=== PATIENT | male | born 2000 | race Caucasian/White ===

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

== ENCOUNTER 2020-01-04 16:51 | Emergency (ER) | payer OTHER, SELFPAY ==
[2020-01-04 16:54] VITALS: BP 101/43; PULSE 100; RESP 20; TEMP 36.7; O2SAT 100; BMI 21.6
--- NOTE | 2020-01-04 17:14 | CT_ITS ---
PROCEDURE: CT CHEST WO CON CLINICAL INDICATION: NV Shortness of air, cough COMPARISON: CT ABDOMEN PELVIS WO CON from 01/04/2020 TECHNIQUE: Axial images obtained with sagittal and coronal reformats. All CT scans at the facility use one or more dose reduction, viz: automated exposure control, ma/kV adjustment per patient size (including targeted exams where dose is matched to indication, i.e. head), or iterative reconstruction technique. FINDINGS: HEART AND MEDIASTINAL STRUCTURES: Hypodense right thyroid nodule measuring 1.2 cm. No mediastinal or hilar mass or adenopathy. LUNGS AND PLEURAL SPACES: Calcified granuloma left upper lobe. The remaining lungs are clear. BONY STRUCTURES: No acute bony abnormalities apparent. UPPER ABDOMEN: Unremarkable. ADDITIONAL FINDINGS: No other significant abnormalities. IMPRESSION: No acute finding. 1.2 cm right thyroid nodule Dictated by: Pino Bond MD 01/04/2020 21:27 Electronically signed by Pino Bond MD in [place] 01/04/2020 21:27
--- NOTE | 2020-01-04 17:14 | CT_ITS ---
PROCEDURE: CT ABDOMEN PELVIS WO CON CLINICAL INDICATION: NV Excessive vomiting COMPARISON: CT ABDOMEN PELVIS W CON from 06/09/2019 TECHNIQUE: Axial images obtained with sagittal and coronal reformats. All CT scans at the facility use one or more dose reduction, viz: automated exposure control, ma/kV adjustment per patient size (including targeted exams where dose is matched to indication, i.e. head), or iterative reconstruction technique. FINDINGS: LOWER THORAX: No acute finding ABDOMEN & PELVIS: The liver, spleen, pancreas, and kidneys have an unremarkable appearance. No intestinal obstruction or free air. Prominent left retroperitoneal on gonadal varices once again noted. No pelvic mass abnormal fluid collection or focal inflammatory change. No evidence of appendicitis or diverticulitis. No abnormal fluid collections evident. No acute bony anomalies. There are few scattered small sclerotic foci noted in the left sacrum in left femoral head suggesting bone islands. IMPRESSION: 1. No acute finding. 2. Chronic left retroperitoneal gonadal varices Dictated by: Pino Bond MD 01/04/2020 21:33 Electronically signed by Pino Bond MD in [place] 01/04/2020 21:33
[2020-01-04 17:23] LABS: Basophils # 0.1 K/mm3 (0-0.2); Basophils % 0.5 % (0.1-2.0); Eosinophils # 0.1 K/mm3 (0.0-0.4); Eosinophils % 0.5 % (0.1-12.0); Hematocrit 45.1 % (42.0-52.0); Lymphocytes # 0.7 K/mm3 (0.7-4.5); Lymphocytes % 6.1 % (10-50); Mean Corpuscular HGB Conc 35.5 g/dL (31.8-35.4); Mean Corpuscular Hemoglobin 30.4 pg (27.0-31.2); Mean Corpuscular Volume 85.7 fl (80-94); Monocytes # 0.4 K/mm3 (0.1-1.0); Monocytes % 3.7 % (1.7-9.3); Neutrophils # 10.1 K/mm3 (1.8-7.8); Neutrophils % 89.2 % (37.0-80.0); Platelet Count 241 K/mm3 (142-424); Red Blood Count 5.26 M/mm3 (4.60-6.20); Red Cell Distribution Width 12.9 % (11.5-17.5); White Blood Count 11.4 K/mm3 (4.5-13.0)
[2020-01-04 17:25] LABS: MANUAL DIFFERENTIAL MANUAL DIFFERENTIAL (MANUAL DIFF)
[2020-01-04 17:29] LABS: Alanine Aminotransferase 26 U/L (12-78); Albumin Level 5.1 g/dl (3.5-5.0); Albumin/Globulin Ratio 1.9 (1.1-1.8); Alkaline Phosphatase 97 U/L (38-126); Anion Gap 15.8 mEq/L (5-15); Aspartate Amino Transferase 33 U/L (17-59); Bilirubin,Total 0.7 mg/dl (0.2-1.3); Blood Urea Nitrogen 11 mg/dl (9-20); Calcium 10.2 mg/dl (8.4-10.2); Carbon Dioxide 24 mmol/L (22.0-30.0); Chloride 106 mmol/L (98-107); Creatinine Clearance Estimated 142 mL/min (50-200); Estimated Glomerular Filt Rate 145 ml/min (>60); GFR (African American) 176 ML/MIN (>60); Globulin 2.7 g/dL (1.3-3.2); Glucose 125 mg/dl (74-100); Potassium 3.8 mmoL/L (3.5-5.1); Sodium 142 mmol/L (136-145); Total Protein,Serum 7.8 g/dl (6.3-8.2)
[2020-01-04 17:30] LABS: Lactic Acid 2.5 mmol/L (0.7-2.1)
--- NOTE | 2020-01-04 17:35 | PC.NURSE ---
pt taken to CT
[2020-01-04 17:44] LABS: Eosinophils % 1 % (0-3); Lymphocytes % 2 % (10-50); Monocytes % 1 % (2-9); Neutrophils % 86 % (42-76); Platelet Estimate Normal; RBC Morphology Normal; Total Cells Counted 100
[2020-01-04 18:09] LABS: Microscopic, Urine URINE MICROSCOPIC (MICROSCOPIC)
[2020-01-04 18:11] LABS: Appearance,Urine CLEAR (Clear); Blood, Urine Negative (Negative); Color,Urine YELLOW (Yellow); Glucose,Urine (UA) Negative (Negative); Ketones,Urine 3+ (Negative); Leukocyte Esterase,Urine Negative (Negative); Nitrate,Urine Negative (Negative); Protein,Urine 2+ (Negative); Specific Gravity, Urine 1.025 (1.005-1.030)
[2020-01-04 18:12] LABS: Strep Scrn Group A (Rapid) Negative (Negative)
[2020-01-04 18:18] LABS: Amorphous Sediment,Urine 2+ /lpf; Bilirubin,Urine Negative (Negative); Squamous Epithelial Cell,Urine Occasional #/hpf (0-5); WBC,Urine Occasional #/hpf (0-3)
--- NOTE | 2020-01-04 18:28 | HMH.EDNVD ---
ED Disposition Clinical Impression: Viral gastroenteritis due to [facility] agent Disposition: Home, Self-Care Condition on Discharge: Good Instructions: DI for Diarrhea and Traveler's Diarrhea -- Adult, DI for Diarrhea and Traveler's Diarrhea -- Child, DI for Nausea -- Adult, DI for Nausea -- Child Additional Instructions: Please follow-up with primary care to set up outpatient colonoscopy and EGD. If condition worsens please return to the emergency department. Prescriptions: Promethazine HCl 50 mg PO TID 4 Days #12 tab Transmission Status: Pending to [facility] Referrals: Lexi Negrete APRN [Primary Care Provider] - - Critical Care Critical Care Time: No Attestation: On 01/04/20, the high probability of a clinically significant, sudden or life threatening deterioration of the following system(s) required my full and direct attention, intervention and personal management. The time I documented below is in addition to time spent performing reported procedures but includes the following listed in this critical care notation. Medical Decision Making - Medical Records Medical records reviewed: Yes: I reviewed the patient's medical records. - Balaji Inquiry Pt receiving controlled substance: No Vital Signs: 01/04/20 16:54 Temperature 98.1 F Temperature Source Axillary Pulse Rate [Right] 100 H Respiratory Rate 20 Blood Pressure [Right Arm] 101/43 L Blood Pressure Mean [Right Arm] 62 02 Sat by Pulse Oximetry 100 - Lab Data Lab results reviewed: Yes: I reviewed the patient's lab results. Lab Results 01/04/20 17:10: WBC 11.4, RBC 5.26, Hgb 16.0, Hct 45.1, MCV 85.7, MCH 30.4, MCHC 35.5 H, RDW 12.9, Plt Count 241, MPV 9.0, Neut % (Auto) 89.2 H, Lymph % (Auto) 6.1 L, [place] % (Auto) 3.7, Eos % (Auto) 0.5, Baso % (Auto) 0.5, Neut # (Auto) 10.1 H, Lymph # (Auto) 0.7, [place] # (Auto) 0.4, Eos # (Auto) 0.1, Baso # (Auto) 0.1, Total Counted 100, Neutrophils % (Manual) 86 H, Band Neutrophils % 10.0 H, Lymphocytes % (Manual) 2 L, Monocytes % (Manual) 1 L, Eosinophils % (Manual) 1, Platelet Estimate Normal, RBC Morphology Normal 01/04/20 17:10: Sodium 142, Potassium 3.8, Chloride 106, Carbon Dioxide 24, Anion Gap 15.8 H, BUN 11, Creatinine 0.70, Estimated Creat Clear 142, Estimated GFR 145, Est GFR ( Amer) 176, Glucose 125 H, Calcium 10.2, Total Bilirubin 0.7, AST 33, ALT 26, Alkaline Phosphatase 97, Total Protein 7.8, Albumin 5.1 H, Globulin 2.7, Albumin/Globulin Ratio 1.9 H 01/04/20 17:10: Lactate 2.5 H 01/04/20 17:19: Influenza Type A Ag Negative, Influenza Type B Ag Negative 01/04/20 17:19: Group A Strep Rapid Negative 01/04/20 18:04: Urine Color Yellow, Urine Appearance Clear, Urine pH 8.0, Ur Specific [place] 1.025, Urine Protein 2+, Urine Glucose (UA) Negative, Urine Ketones 3+, Urine Blood Negative, Urine Nitrate Negative, Urine Bilirubin Negative, Urine Urobilinogen 1.0, Ur Leukocyte Esterase Negative, Urine RBC None, Urine WBC Occasional, Ur Squamous Epith Cells Occasional, Amorphous Sediment 2+, Urine Bacteria None Result diagrams: 01/04/20 17:10 01/04/20 17:10 Orders (Tests/Meds): ED MEDICATIONS Generic Name Dose Route Start Last Admin Trade Name Freq PRN Reason Stop Dose Admin Sodium Chloride 1,000 mls @ 999 mls/hr 01/04/20 17:15 01/04/20 17:34 Sod Chlor 0.9% 1000ml Bag IV 01/04/20 18:15 999 mls/hr .Q1H1M EDWARD Administration Discontinued Medications Generic Name Dose Route Start Last Admin Trade Name Freq PRN Reason Stop Dose Admin Ondansetron HCl 4 mg 01/04/20 17:09 01/04/20 17:33 Zofran 4mg/2ml Vial IV 01/04/20 17:10 4 mg ONCE ONE Administration Promethazine HCl 25 mg 01/04/20 17:09 01/04/20 17:34 Phenergan 25mg/Ml 1ml Vial IV 01/04/20 17:10 25 mg ONCE ONE Administration Sodium Chloride 25 ml 01/04/20 17:09 01/04/20 17:34 Sod Chlor 0.9% 25ml Bag IV 01/04/20 17:10 25 ml ONCE ONE Administration ORDERS Catego
[2020-01-04 19:26] VITALS: BP 114/76; PULSE 86; RESP 16; TEMP 36.7; O2SAT 99
== END 2020-01-04 19:30 | disposition home or self-care (01) ==
PROVIDERS: Emergency Provider Family Medicine; PCP Nurse Practitioner Family
DX: A08.11 Acute gastroenteropathy due to Norwalk agent (principal)
CPT/HCPCS: 71250; 74176; 80053; 81001; 83605; 85007; 85025; 87040; 87275; 87276; 87430; 96365; 96366; 96375; 96376; 99284; J2405

== ENCOUNTER → 2020-01-31 10:20 | Outpatient (CLI) | payer OTHER, SELFPAY | PROVIDERS: PCP Nurse Practitioner Family; Visit Provider Nurse Practitioner Family | DX: R10.11 Right upper quadrant pain (principal); R11.10 Vomiting, unspecified ==

== ENCOUNTER → 2020-02-05 09:19 | Outpatient (CLI) | payer OTHER, SELFPAY ==
--- NOTE | 2020-02-05 09:22 | US_ITS ---
PROCEDURE: US ABDOMEN LIMITED CLINICAL INDICATION: VOMITING,WEIGHT LOSS,RUQ TENDERNESS COMPARISON: No exams were available for comparison FINDINGS: PANCREAS: Unremarkable. No obvious mass or abnormal fluid collection. No ductal dilatation LIVER: No focal liver lesions demonstrated. Homogeneous echogenicity. No intrahepatic biliary ductal dilatation evident. There is appropriate direction of blood flow within a non dilated portal vein RIGHT KIDNEY: Unremarkable. Normal size and echogenicity. No hydronephrosis GALLBLADDER: No gallstones, gallbladder wall thickening, pericholecystic fluid, or biliary dilatation. IMPRESSION: Unremarkable limited abdominal ultrasound as detailed above disc Dictated by: Pino Bond MD 02/05/2020 12:12 Electronically signed by Pino Bond MD in [place] 02/05/2020 12:12
--- NOTE | 2020-02-05 09:24 | NM_ITS ---
PROCEDURE: NM HEPATOBILIARY W PHARM CLINICAL INDICATION: WEIGHT LOSS,VOMITING Abdominal pain with nausea and vomiting COMPARISON: US ABDOMEN LIMITED from 02/05/2020 TECHNIQUE: DOSE: 8.26 mCi technetium Choletec. 1 mcg CCK. No pain reported with CCK infusion FINDINGS: Homogeneous activity is present within the hepatic parenchyma. Activity is present in the gallbladder by 10 minutes. Activity is present in the small bowel by 15 minutes. The gallbladder ejection fraction is calculated to be 51 percent. CCK-The patient did not report pain or other symptoms during CCK infusion. IMPRESSION: Unremarkable hepatic biliary scan with normal gallbladder ejection fraction Dictated by: Pino Bond MD 02/05/2020 12:10 Electronically signed by Pino Bond MD in [place] 02/05/2020 12:10
--- NOTE | 2020-02-05 10:06 | HMH.ITSHM ---
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 []STOMACH MED
== END ==
PROVIDERS: PCP Nurse Practitioner Family; Visit Provider Internal Medicine Adolescent Medicine
DX: R11.10 Vomiting, unspecified (principal); R63.4 Abnormal weight loss; R10.811 Right upper quadrant abdominal tenderness
CPT/HCPCS: 76705; 78227; A9537; J2805

== ENCOUNTER 2020-09-15 16:34 | Emergency (ER) | payer OTHER, SELFPAY ==
[2020-09-15 16:35] VITALS: BP 119/71; PULSE 88; RESP 16; TEMP 36.7; O2SAT 98; BMI 22.0
[2020-09-15 17:33] VITALS: BMI 17.9
[2020-09-15 17:46] LABS: Chloride 105 mmol/L (98-107)
[2020-09-15 17:47] LABS: Basophils % 0.2 % (0.1-2.0); Eosinophils % 0.1 % (0.1-12.0); Hematocrit 49.7 % (42.0-52.0); Hemoglobin 17.2 g/dL (14.1-18.0); Lymphocytes # 0.8 K/mm3 (0.7-4.5); Lymphocytes % 5.9 % (10-50); Mean Corpuscular HGB Conc 34.7 g/dL (31.8-35.4); Mean Corpuscular Hemoglobin 30.5 pg (27.0-31.2); Mean Corpuscular Volume 87.9 fl (80-94); Mean Platelet Volume 8.6 fl (7.4-10.4); Monocytes # 0.4 K/mm3 (0.1-1.0); Monocytes % 2.9 % (1.7-9.3); Neutrophils % 90.9 % (37.0-80.0); Platelet Count 235 K/mm3 (142-424); Potassium 3.7 mmoL/L (3.5-5.1); Red Blood Count 5.65 M/mm3 (4.60-6.20); Red Cell Distribution Width 13.1 % (11.5-17.5); Sodium 141 mmol/L (136-145); White Blood Count 13.2 K/mm3 (4.5-13.0)
[2020-09-15 17:49] LABS: Alanine Aminotransferase 25 U/L (12-78); Aspartate Amino Transferase 34 U/L (17-59); Blood Urea Nitrogen 11 mg/dl (9-20); Creatinine Clearance Estimated 91 mL/min (50-200); Estimated Glomerular Filt Rate 108 ml/min (>60); GFR (African American) 130 ML/MIN (>60); Lipase 116 U/L (23-300)
[2020-09-15 17:50] VITALS: BP 96/53; PULSE 64; O2SAT 100
[2020-09-15 17:50] LABS: Albumin Level 5.3 g/dl (3.5-5.0); Albumin/Globulin Ratio 1.8 (1.1-1.8); Alkaline Phosphatase 107 U/L (38-126); Anion Gap 15.7 mEq/L (5-15); Bilirubin,Total 0.9 mg/dl (0.2-1.3); Calcium 10.5 mg/dl (8.4-10.2); Carbon Dioxide 24 mmol/L (22.0-30.0); Glucose 124 mg/dl (74-100); Total Protein,Serum 8.3 g/dl (6.3-8.2)
[2020-09-15 17:57] LABS: MANUAL DIFFERENTIAL MANUAL DIFFERENTIAL (MANUAL DIFF)
[2020-09-15 18:00] VITALS: BP 96/52; PULSE 79; O2SAT 100
[2020-09-15 18:43] LABS: Lymphocytes % 4 % (10-50); Monocytes % 1 % (2-9); Neutrophils % 95 % (42-76); Total Cells Counted 100
[2020-09-15 18:44] LABS: Platelet Estimate Normal; RBC Morphology Normal
--- NOTE | 2020-09-15 18:44 | HMH.EDABDPAI ---
ED Disposition Clinical Impression: Vomiting Qualifiers: Nausea presence: with nausea Abdominal pain Qualifiers: Abdominal location: generalized Qualified Code(s): R10.84 - Generalized abdominal pain Disposition: Home, Self-Care Condition on Discharge: Good Instructions: DI for Acute Abdominal Pain Additional Instructions: Return to the ED for any new or worsening symptoms including persistent vomiting or severe abdominal pain. Prescriptions: Ondansetron [Zofran 4mg ODT] 4 mg PO TIDP PRN 3 Days #3 tab PRN Reason: Nausea Transmission Status: Pending to [facility] Referrals: Lexi Negrete APRN [Primary Care Provider] - - Critical Care Critical Care Time: No Attestation: On 09/15/20, the high probability of a clinically significant, sudden or life threatening deterioration of the following system(s) required my full and direct attention, intervention and personal management. The time I documented below is in addition to time spent performing reported procedures but includes the following listed in this critical care notation. Medical Decision Making - Medical Records Medical records reviewed: Yes: I reviewed the patient's medical records. MR Comment: Multiple visits for similar symptoms. - Balaji Inquiry Pt receiving controlled substance: No Vital Signs: 09/15/20 17:50 09/15/20 18:00 Pulse Rate [Right Radial] 64 79 Blood Pressure [Left Arm] 96/53 L 96/52 L Blood Pressure Mean [Left Arm] 67 66 Blood Pressure Source [Left Arm] Automatic Cuff Automatic Cuff Blood Pressure Position [Left Arm] Sitting Sitting 02 Sat by Pulse Oximetry 100 100 Oxygen Delivery Method Room Air Room Air - Lab Data Lab Results 09/15/20 17:25: WBC 13.2 H, RBC 5.65, Hgb 17.2, Hct 49.7, MCV 87.9, MCH 30.5, MCHC 34.7, RDW 13.1, Plt Count 235, MPV 8.6, Neut % (Auto) 90.9 H, Lymph % (Auto) 5.9 L, [place] % (Auto) 2.9, Eos % (Auto) 0.1, Baso % (Auto) 0.2, Neut # (Auto) 12.0 H, Lymph # (Auto) 0.8, Town[place] # (Auto) 0.4, Eos # (Auto) 0.0, Baso # (Auto) 0.0, Total Counted 100, Neutrophils % (Manual) 95 H, Lymphocytes % (Manual) 4 L, Monocytes % (Manual) 1 L, Platelet Estimate Normal, RBC Morphology Normal 09/15/20 17:25: Sodium 141, Potassium 3.7, Chloride 105, Carbon Dioxide 24, Anion Gap 15.7 H, BUN 11, Creatinine 0.90, Estimated Creat Clear 91, Estimated GFR 108, Est GFR ( Amer) 130, Glucose 124 H, Calcium 10.5 H, Total Bilirubin 0.9, AST 34, ALT 25, Alkaline Phosphatase 107, Total Protein 8.3 H, Albumin 5.3 H, Globulin 3.0, Albumin/Globulin Ratio 1.8 09/15/20 17:25: Lipase 116 Result diagrams: 09/15/20 17:25 09/15/20 17:25 Orders (Tests/Meds): ED MEDICATIONS Generic Name Dose Route Start Last Admin Trade Name Freq PRN Reason Stop Dose Admin Sodium Chloride 1,000 mls @ 999 mls/hr 09/15/20 17:45 09/15/20 17:37 Sod Chlor 0.9% 1000ml Bag IV 09/15/20 18:45 999 mls/hr .Q1H1M EDWARD Administration Discontinued Medications Generic Name Dose Route Start Last Admin Trade Name Freq PRN Reason Stop Dose Admin Ondansetron HCl 4 mg 09/15/20 17:36 09/15/20 17:37 Ondansetron 4mg/2ml Vial IV 09/15/20 17:37 4 mg ONCE ONE Administration Medical Decision Narrative: 20-year-old male who presents with acute nausea and vomiting and epigastric abdominal pain since this morning. Patient has a history of similar events that improved with fluids and Zofran. He has a benign abdominal exam and is well-appearing and nontoxic on initial examination has hemodynamically stable vital signs. Patient will be given 4 mg of Zofran IV and IV fluid bolus 1 L. Following interventions patient feels significantly better is tolerating oral intake and will be discharged home in good condition with appropriate return precautions and a prescription for Zofran. Abdominal Pain HPI - General Chief Complaint: Abdominal Pain Stated Complaint: Vomiting Time Seen by Provider: 09/15/20 17:15 Source of [employer]
[2020-09-15 19:18] VITALS: BP 111/76; PULSE 81; RESP 16; TEMP 36.7; O2SAT 98
== END 2020-09-15 19:25 | disposition home or self-care (01) ==
PROVIDERS: Emergency Provider Student in an Organized Health Care Education/Training Program; PCP Nurse Practitioner Family
DX: R10.84 Generalized abdominal pain (principal); R11.10 Vomiting, unspecified
CPT/HCPCS: 80053; 83690; 85007; 85025; 96365; 96375; 99282; J2405

== ENCOUNTER 2021-04-07 08:47 | Emergency (ER) | payer OTHER, SELFPAY ==
[2021-04-07 08:48] VITALS: BP 123/77; PULSE 94; RESP 18; TEMP 36.8; O2SAT 100; BMI 18.5
--- NOTE | 2021-04-07 08:56 | HMH.EDGENADL ---
ED Disposition Clinical Impression: Nausea and vomiting Qualifiers: Vomiting type: unspecified Vomiting Intractability: non-intractable Qualified Code(s): R11.2 - Nausea with vomiting, unspecified Disposition: Home, Self-Care Condition on Discharge: Fair Instructions: Nausea and Vomiting-Adult Additional Instructions: You have been evaluated for nausea and vomiting. Please take Zofran and Phenergan as needed. Eat a bland diet. Avoid foods that cause abdominal pain or nausea. Follow-up with your primary care doctor. Return to the emergency department at once for any new or worsening symptoms. Referrals: Analisa Hancock APRN [Primary Care Provider] - Time of Disposition: 10:43 - Critical Care Critical Care Time: No Attestation: On , the high probability of a clinically significant, sudden or life threatening deterioration of the following system(s) required my full and direct attention, intervention and personal management. The time I documented below is in addition to time spent performing reported procedures but includes the following listed in this critical care notation. Medical Decision Making - Medical Records Medical records reviewed: Yes: I reviewed the patient's medical records. - Balaji Inquiry Pt receiving controlled substance: No Vital Signs: 04/07/21 08:48 Temperature 98.2 F Temperature Source Axillary Pulse Rate [Right Radial] 94 H Respiratory Rate 18 Blood Pressure [Right Arm] 123/77 Blood Pressure Mean [Right Arm] 92 Blood Pressure Source [Right Arm] Automatic Cuff Blood Pressure Position [Right Arm] Sitting 02 Sat by Pulse Oximetry 100 Oxygen Delivery Method Room Air - Lab Data Lab Results 04/07/21 09:05: WBC 6.6, RBC 5.33, Hgb 15.9, Hct 44.1, MCV 82.9, MCH 29.8, MCHC 36.0 H, RDW 13.2, Plt Count 212, MPV 9.2, Neut % (Auto) 85.7 H, Lymph % (Auto) 7.1 L, [place]oll[place] % (Auto) 6.2, Eos % (Auto) 0.4, Baso % (Auto) 0.6, Neut # (Auto) 5.7, Lymph # (Auto) 0.5 L, [place]oll[place] # (Auto) 0.4, Eos # (Auto) 0.0, Baso # (Auto) 0.0, Total Counted 100, Neutrophils % (Manual) 89 H, Lymphocytes % (Manual) 7 L, Monocytes % (Manual) 4, Nucleated RBCs 2, Platelet Estimate Normal, Hypochromasia 1+ 04/07/21 09:05: Sodium 142, Potassium 3.7, Chloride 107, Carbon Dioxide 21 L, Anion Gap 17.7 H, BUN 11, Creatinine 0.80, Estimated Creat Clear 101, Estimated GFR 122, Est GFR ( Amer) 148, Glucose 145 H, Calcium 9.7, Total Bilirubin 0.9, AST 34, ALT 25, Alkaline Phosphatase 95, Total Protein 7.8, Albumin 5.1 H, Globulin 2.7, Albumin/Globulin Ratio 1.9 H 04/07/21 09:05: Lipase 105 Result diagrams: 04/07/21 09:05 04/07/21 09:05 Orders (Tests/Meds): ED MEDICATIONS Discontinued Medications Generic Name Dose Route Start Last Admin Trade Name Freq PRN Reason Stop Dose Admin Sodium Chloride 1,000 mls @ 999 mls/hr 04/07/21 09:00 04/07/21 09:10 Sod Chlor 0.9% 1000ml Bag IV 04/07/21 10:00 999 mls/hr .Q1H1M EDWARD Administration Ondansetron HCl 4 mg 04/07/21 08:55 04/07/21 09:10 Ondansetron 4mg/2ml Vial IV 04/07/21 08:56 4 mg ONCE ONE Administration Medical Decision Narrative: In summary this is a 21-year-old male presenting to the emergency department with nausea and vomiting. Patient clinically stable on arrival. Vital signs within normal limits. He is small for his age, thin. Concern for dehydration, electrolyte derangement, viral gastroenteritis, vaccine reaction. Doubt more serious pathology like surgical abdominal pain. Will obtain CBC, CMP, lipase. Patient given IV fluids and 4 mg IV Zofran. Initial laboratory results show anion gap of 17. Otherwise unremarkable. After medication and fluids patient was feeling much better. No vomiting while in the emergency department. He was able to tolerate crackers and water. [place] comfortable with plan for discharge home. Recommended close follow-up with PCP. General Adult HPI - General Stated complaint: vomiting Time Seen by Provider: 04/07
[2021-04-07 09:19] LABS: Basophils % 0.6 % (0.1-2.0); Eosinophils % 0.4 % (0.1-12.0); Hematocrit 44.1 % (42.0-52.0); Hemoglobin 15.9 g/dL (14.1-18.0); Lymphocytes # 0.5 K/mm3 (0.7-4.5); Lymphocytes % 7.1 % (10-50); Mean Corpuscular Hemoglobin 29.8 pg (27.0-31.2); Mean Corpuscular Volume 82.9 fl (80-94); Mean Platelet Volume 9.2 fl (7.4-10.4); Monocytes # 0.4 K/mm3 (0.1-1.0); Monocytes % 6.2 % (1.7-9.3); Neutrophils # 5.7 K/mm3 (1.8-7.8); Neutrophils % 85.7 % (37.0-80.0); Platelet Count 212 K/mm3 (142-424); Red Blood Count 5.33 M/mm3 (4.60-6.20); Red Cell Distribution Width 13.2 % (11.5-17.5); White Blood Count 6.6 K/mm3 (4.8-10.8)
[2021-04-07 09:27] LABS: Lipase 105 U/L (23-300)
[2021-04-07 09:28] LABS: Alanine Aminotransferase 25 U/L (12-78); Albumin Level 5.1 g/dl (3.5-5.0); Albumin/Globulin Ratio 1.9 (1.1-1.8); Alkaline Phosphatase 95 U/L (38-126); Anion Gap 17.7 mEq/L (5-15); Aspartate Amino Transferase 34 U/L (17-59); Bilirubin,Total 0.9 mg/dl (0.2-1.3); Blood Urea Nitrogen 11 mg/dl (9-20); Calcium 9.7 mg/dl (8.4-10.2); Carbon Dioxide 21 mmol/L (22.0-30.0); Chloride 107 mmol/L (98-107); Creatinine Clearance Estimated 101 mL/min (50-200); Estimated Glomerular Filt Rate 122 ml/min (>60); GFR (African American) 148 ML/MIN (>60); Globulin 2.7 g/dL (1.3-3.2); Glucose 145 mg/dl (74-100); Potassium 3.7 mmoL/L (3.5-5.1); Sodium 142 mmol/L (136-145); Total Protein,Serum 7.8 g/dl (6.3-8.2)
[2021-04-07 09:30] LABS: MANUAL DIFFERENTIAL MANUAL DIFFERENTIAL (MANUAL DIFF)
--- NOTE | 2021-04-07 09:45 | PC.NURSE ---
Resident sleeping on stretcher at this time. Spoke with mother and she stated that Zofran has stopped the vomiting. Mother advises that it usually helps every time.
[2021-04-07 10:05] LABS: Hypochromasia 1+; Platelet Estimate Normal
[2021-04-07 10:15] LABS: Lymphocytes % 7 % (10-50); Monocytes % 4 % (2-9); Neutrophils % 89 % (42-76); Nucleated Red Blood Cells 2; Total Cells Counted 100
[2021-04-07 11:05] VITALS: BP 111/67; PULSE 91; RESP 16; TEMP 36.9; O2SAT 99
== END 2021-04-07 11:05 | disposition home or self-care (01) ==
PROVIDERS: Emergency Provider Emergency Medicine; PCP Nurse Practitioner Family
DX: R11.2 Nausea with vomiting, unspecified (principal); R73.9 Hyperglycemia, unspecified
CPT/HCPCS: 80053; 83690; 85007; 85025; 96374; 96375; 99282; J2405

== ENCOUNTER 2021-09-19 08:26 | Emergency (ER) | payer OTHER, SELFPAY ==
[2021-09-19 08:33] VITALS: BP 110/68; PULSE 91; RESP 16; TEMP 36.6; O2SAT 96; BMI 18.4
[2021-09-19 08:45] VITALS: BP 104/70; PULSE 90; O2SAT 96
[2021-09-19 09:00] VITALS: BP 101/59; PULSE 86; O2SAT 99
--- NOTE | 2021-09-19 09:08 | HMH.EDGENADL ---
ED Disposition Clinical Impression: Nausea and vomiting Qualifiers: Vomiting type: unspecified Qualified Code(s): R11.2 - Nausea with vomiting, unspecified Disposition: Home, Self-Care Condition on Discharge: Good Instructions: DI for Nausea -- Adult Additional Instructions: You have been evaluated for nausea and vomiting. Please follow bland diet for the next few days. Stay hydrated. Follow-up with your primary care doctor. Return to the emergency department for any new or worsening symptoms. Prescriptions: Sucralfate [Carafate 1gm/10mL Susp] 10 ml PO ACHS PRN #150 ml PRN Reason: Acid Reflux Transmission Status: Pending to [facility] Promethazine HCl [Phenergan 12.5mg tablet] 12.5 mg PO Q6H PRN #6 tab PRN Reason: Nausea And Vomiting Transmission Status: Pending to [facility] Referrals: Analisa Hancock APRN [Primary Care Provider] - Time of Disposition: 10:33 - Critical Care Critical Care Time: No Attestation: On 09/19/21, the high probability of a clinically significant, sudden or life threatening deterioration of the following system(s) required my full and direct attention, intervention and personal management. The time I documented below is in addition to time spent performing reported procedures but includes the following listed in this critical care notation. Medical Decision Making - Medical Records Medical records reviewed: Yes: I reviewed the patient's medical records. - Balaji Inquiry Pt receiving controlled substance: No Vital Signs: 09/19/21 08:33 09/19/21 08:45 09/19/21 09:00 Temperature 98 F Temperature Source Oral Pulse Rate 90 86 Pulse Rate [Left Radial] 91 H Respiratory Rate 16 Blood Pressure 104/70 L 101/59 L Blood Pressure [Right Arm] 110/68 Blood Pressure Mean [Right Arm] 82 02 Sat by Pulse Oximetry 96 96 99 Oxygen Delivery Method Room Air - Lab Data Lab Results 09/19/21 08:55: WBC 10.9 H, RBC 5.86, Hgb 17.1, Hct 51.6, MCV 88.0, MCH 29.1, MCHC 33.1, RDW 13.3, Plt Count 260, MPV 9.0, Neut % (Auto) 89.3 H, Lymph % (Auto) 6.2 L, [place] % (Auto) 3.9, Eos % (Auto) 0.1, Baso % (Auto) 0.4, Neut # (Auto) 9.8 H, Lymph # (Auto) 0.7, [place] # (Auto) 0.4, Eos # (Auto) 0.0, Baso # (Auto) 0.0, Total Counted 100, Neutrophils % (Manual) 90 H, Lymphocytes % (Manual) 6 L, Monocytes % (Manual) 4, Platelet Estimate Normal 09/19/21 08:55: Sodium 142, Potassium 3.9, Chloride 103, Carbon Dioxide 27, Anion Gap 15.9 H, BUN 15, Creatinine 0.90, Estimated Creat Clear 92, Estimated GFR 107, Est GFR ( Amer) 129, Glucose 121 H, Calcium 10.2, Total Bilirubin 0.6, AST 32, ALT 23, Alkaline Phosphatase 82, Total Protein 7.8, Albumin 5.0, Globulin 2.8, Albumin/Globulin Ratio 1.8, Lipase 129 Result diagrams: 09/19/21 08:55 09/19/21 08:55 Orders (Tests/Meds): ED MEDICATIONS Discontinued Medications Generic Name Dose Route Start Last Admin Trade Name Freq PRN Reason Stop Dose Admin Sodium Chloride 1,000 mls @ 999 mls/hr 09/19/21 08:45 09/19/21 08:45 Sod Chlor 0.9% 1000ml Bag IV 09/19/21 09:45 999 mls/hr .Q1H1M EDWARD Administration Promethazine HCl 12.5 mg 09/19/21 08:37 09/19/21 08:44 Promethazine Hcl 25mg/Ml 1ml Vial IV 09/19/21 08:38 12.5 mg ONCE ONE Administration Sodium Chloride 25 ml 09/19/21 08:37 09/19/21 08:44 Sodium Chloride 0.9% 25ml Bag IV 09/19/21 08:38 25 ml ONCE ONE Administration Medical Decision Narrative: In summary this is a 21-year-old male with history of vomiting syndrome presenting to the emergency department nausea and vomiting. Patient clinically stable on arrival. Vital signs within normal limits. Concern for dehydration, pancreatitis, gastritis. Will obtain CBC, CMP, lipase. Patient given IV fluids and 12.5 mg IV Phenergan. Laboratory results show slightly elevated white blood cell count at 10,000. There is lymphopenia. Other laboratory results are reassuring. No elevatio
[2021-09-19 09:23] LABS: Basophils % 0.4 % (0.1-2.0); Eosinophils % 0.1 % (0.1-12.0); Hematocrit 51.6 % (42.0-52.0); Hemoglobin 17.1 g/dL (14.1-18.0); Lymphocytes # 0.7 K/mm3 (0.7-4.5); Lymphocytes % 6.2 % (10-50); Mean Corpuscular HGB Conc 33.1 g/dL (31.8-35.4); Mean Corpuscular Hemoglobin 29.1 pg (27.0-31.2); Monocytes # 0.4 K/mm3 (0.1-1.0); Monocytes % 3.9 % (1.7-9.3); Neutrophils # 9.8 K/mm3 (1.8-7.8); Neutrophils % 89.3 % (37.0-80.0); Platelet Count 260 K/mm3 (142-424); Red Blood Count 5.86 M/mm3 (4.60-6.20); Red Cell Distribution Width 13.3 % (11.5-17.5); White Blood Count 10.9 K/mm3 (4.8-10.8)
[2021-09-19 09:29] LABS: MANUAL DIFFERENTIAL MANUAL DIFFERENTIAL (MANUAL DIFF)
[2021-09-19 09:33] LABS: Alanine Aminotransferase 23 U/L (12-78); Albumin/Globulin Ratio 1.8 (1.1-1.8); Alkaline Phosphatase 82 U/L (38-126); Anion Gap 15.9 mEq/L (5-15); Aspartate Amino Transferase 32 U/L (17-59); Bilirubin,Total 0.6 mg/dl (0.2-1.3); Blood Urea Nitrogen 15 mg/dl (9-20); Calcium 10.2 mg/dl (8.4-10.2); Carbon Dioxide 27 mmol/L (22.0-30.0); Chloride 103 mmol/L (98-107); Creatinine Clearance Estimated 92 mL/min (50-200); Estimated Glomerular Filt Rate 107 ml/min (>60); GFR (African American) 129 ML/MIN (>60); Globulin 2.8 g/dL (1.3-3.2); Glucose 121 mg/dl (74-100); Lipase 129 U/L (23-300); Potassium 3.9 mmoL/L (3.5-5.1); Sodium 142 mmol/L (136-145); Total Protein,Serum 7.8 g/dl (6.3-8.2)
[2021-09-19 10:18] LABS: Lymphocytes % 6 % (10-50); Monocytes % 4 % (2-9); Neutrophils % 90 % (42-76); Total Cells Counted 100
[2021-09-19 10:19] LABS: Platelet Estimate Normal
[2021-09-19 10:47] VITALS: BP 120/87; PULSE 84; RESP 16; TEMP 36.6; O2SAT 99
[2021-09-19 10:57] LABS: Coronavirus 19, PCR Not Detected (NotDetected); Influenza A, PCR Not Detected (NotDetected); Influenza B, PCR Not Detected (NotDetected)
== END 2021-09-19 10:47 | disposition home or self-care (01) ==
PROVIDERS: Emergency Provider Emergency Medicine; PCP Nurse Practitioner Family
DX: R11.2 Nausea with vomiting, unspecified (principal)
CPT/HCPCS: 80053; 83690; 85007; 85025; 96365; 96375; 99282; C9803; U0003; U0005

== ENCOUNTER → 2021-09-22 21:12 | Outpatient (CLI) | payer OTHER, SELFPAY | PROVIDERS: Visit Provider Nurse Practitioner Family | DX: Z20.822 Contact with and (suspected) exposure to COVID-19 (principal); J02.9 Acute pharyngitis, unspecified | CPT/HCPCS: C9803; U0003; U0005 ==

== ENCOUNTER 2022-07-26 07:33 | Emergency (ER) | payer OTHER, SELFPAY ==
[2022-07-26 07:35] VITALS: BP 100/55; PULSE 96; RESP 18; TEMP 36.7; O2SAT 100; BMI 19.1
[2022-07-26 07:53] VITALS: BMI 25.0
[2022-07-26 07:55] LABS: Basophils # 0.1 K/mm3 (0-0.2); Basophils % 0.5 % (0.1-2.0); Eosinophils # 0.1 K/mm3 (0.0-0.4); Eosinophils % 0.3 % (0.1-12.0); Hematocrit 49.3 % (42.0-52.0); Hemoglobin 16.9 g/dL (14.1-18.0); Lymphocytes # 0.9 K/mm3 (0.7-4.5); Lymphocytes % 5.9 % (10-50); Mean Corpuscular HGB Conc 34.2 g/dL (31.8-35.4); Mean Corpuscular Hemoglobin 29.5 pg (27.0-31.2); Mean Corpuscular Volume 86.2 fl (80-94); Monocytes # 0.5 K/mm3 (0.1-1.0); Monocytes % 3.6 % (1.7-9.3); Neutrophils # 13.4 K/mm3 (1.8-7.8); Neutrophils % 89.6 % (37.0-80.0); Platelet Count 274 K/mm3 (142-424); Red Blood Count 5.72 M/mm3 (4.60-6.20); White Blood Count 14.9 K/mm3 (4.8-10.8)
[2022-07-26 08:00] LABS: MANUAL DIFFERENTIAL MANUAL DIFFERENTIAL (MANUAL DIFF)
[2022-07-26 08:10] LABS: Lymphocytes % 7 % (10-50); Monocytes % 4 % (2-9); Neutrophils % 89 % (42-76); Platelet Estimate Normal; RBC Morphology Normal; Total Cells Counted 100
--- NOTE | 2022-07-26 08:10 | HMH.EDGENADL ---
Discharge Plan Disposition Patient Disposition: Home, Self-Care Condition: Good Prescriptions Prescriptions: New scopolamine base 1 mg over 3 days patch 3 day 1 patch transdermal Q72H PRN (Reason: nausea and vomiting) Qty: 10 0RF promethazine 25 mg suppository 25 mg DC Q6H PRN (Reason: sedation) Qty: 12 0RF No Action omeprazole 20 mg capsule,delayed release(DR/EC) 20 mg PO Clinical Impressions Clinical Impression: Gastroenteritis, Dehydration Instructions Patient Instructions: DI for Diarrhea and Traveler's Diarrhea -- Adult, DI for Nausea -- Adult, Promethazine, Scopolamine Transdermal Patch Print Language Print Language: Uzbek Discharge ED Provider: Filipe Castrejon General Adult HPI General Chief complaint: Nausea/Vomiting/Diarrhea Stated complaint: Vomiting Time Seen by Provider: 07/26/22 07:43 Mode of Arrival: Ambulatory Source of Information: Parent(s) Limitations: No Limitations Description of Symptoms (Recalled from ER Triage Doc. by RN): MOTHER REPORS PT BEGAN VOMITING AT 2200 LAST NIGHT. History of Present Illness HPI narrative: 22-year-old male, history of recurrent abdominal pain, nausea and vomiting, presents with the same. Mom states approximately 20 episodes of vomiting since last night. Denies any diarrhea, constipation, abdominal pain today, fevers, chills or any other symptoms. He had received approximately 1 L of IV fluids and was given 4 mg of Zofran prior to my evaluation. Is still reporting some nausea and vomiting, given additional 12.5 mg of IV Phenergan. Denies prior abdominal surgeries, denies any dysuria. Related Data Home Medications Medication Instructions Recorded Confirmed omeprazole 20 mg capsule,delayed 20 mg PO 09/22/21 09/22/21 release Previous Rx's Medication Instructions Recorded promethazine 25 mg rectal 25 mg DC Q6H PRN sedation #12 ea 07/26/22 suppository scopolamine base 1 mg over 3 days 1 patch transdermal Q72H PRN 07/26/22 transdermal patch nausea and vomiting #10 ea Allergies Allergy/AdvReac Type Severity Reaction Status Date / Time No Known Allergies Allergy Verified 09/22/21 11:36 [facility] Medical History No significant past medical history Family History Other No significant family history Social History Smoking Status: Never smoker alcohol intake: never current occupational status: other Travel in the last 8 weeks: None household members: family housing: house ROS Obtained: Yes Systems reviewed as appropriate & no additional complaints except as documented Constitutional Constitutional: Reports system reviewed and no additional complaints, except as documented Eyes Eyes: Reports system reviewed and no additional complaints, except as documented ENT Ears, Nose, Mouth, and Throat: Reports system reviewed and no additional complaints, except as documented Cardiovascular Cardiovascular: Reports system reviewed and no additional complaints, except as documented Respiratory Respiratory: Reports system reviewed and no additional complaints, except as documented Gastrointestinal Gastrointestingal: Reports system reviewed and no additional complaints, except as documented Genitourinary Male Genitourinary: Reports system reviewed and no additional complaints, except as documented Musculoskeletal Musculoskeletal: Reports system reviewed and no additional complaints, except as documented Integumentary/Breasts Skin/Breast: Reports system reviewed and no additional complaints, except as documented Neurologic Neurologic: Reports system reviewed and no additional complaints, except as documented Endocrine Endocrine: Reports system reviewed and no additional complaints, except as documented Hematologic/Lymphatic Henatologic/Lymphatic: Reports system re
[2022-07-26 08:11] LABS: Alanine Aminotransferase 25 U/L (12-78); Albumin Level 5.2 g/dl (3.5-5.0); Albumin/Globulin Ratio 1.9 (1.1-1.8); Alkaline Phosphatase 116 U/L (38-126); Anion Gap 24.4 mEq/L (5-15); Aspartate Amino Transferase 33 U/L (17-59); Bilirubin,Total 1.1 mg/dl (0.2-1.3); Blood Urea Nitrogen 14 mg/dl (9-20); Calcium 10.7 mg/dl (8.4-10.2); Carbon Dioxide 22 mmol/L (22.0-30.0); Chloride 103 mmol/L (98-107); Creatinine Clearance Estimated 139 mL/min (50-200); Estimated Glomerular Filt Rate 121 ml/min (>60); GFR (African American) 146 ML/MIN (>60); Globulin 2.8 g/dL (1.3-3.2); Glucose 139 mg/dl (74-100); Lipase 120 U/L (23-300); Potassium 4.4 mmoL/L (3.5-5.1); Sodium 145 mmol/L (136-145)
--- NOTE | 2022-07-26 08:44 | PC.NURSE ---
ED MD AT BEDSIDE FOR EVALUATION
[2022-07-26 08:47] VITALS: BP 104/56; PULSE 78; RESP 17; O2SAT 96
[2022-07-26 09:00] VITALS: BP 92/47; PULSE 79; RESP 20; O2SAT 99
[2022-07-26 09:25] VITALS: BP 100/50; PULSE 81; RESP 18; TEMP 36.7; O2SAT 100
== END 2022-07-26 09:30 | disposition home or self-care (01) ==
PROVIDERS: Family Medicine; Emergency Provider Emergency Medicine; PCP Nurse Practitioner Family
DX: K52.9 Noninfective gastroenteritis and colitis, unspecified (principal); E86.0 Dehydration
CPT/HCPCS: 80053; 83690; 85007; 85025; 96365; 96375; 99284; J2405

== ENCOUNTER 2024-08-05 13:01 | Emergency (ER) | payer OTHER, SELFPAY ==
[2024-08-05 13:30] VITALS: BP 117/65; PULSE 77; RESP 18; TEMP 37.3; O2SAT 97; BMI 17.2
--- NOTE | 2024-08-05 13:35 | ED_ITS ---
Discharge Plan Prescriptions Prescriptions: New ulbpcoey-lrojqerbh-MM 3.5-10,000-1 mg/mL-unit/mL-% solution 4 drp Ear-Left Q8H 7 Days Qty: 10 0RF No Action omeprazole 20 mg capsule,delayed release(DR/EC) 20 mg PO DIRECTED Referrals Follow up/Referrals: Analisa Rivera APRN [Primary Care Provider] - See instructions Activity Restrictions/Add. Instructions Additional Instructions/Restrictions: Use the ear drops as directed. Follow up with your primary care physician. GO TO THE ER FOR ANY WORSENING SYMPTOMS OR CONCERNS Clinical Impressions Clinical Impression: Impacted cerumen of left ear Instructions Patient Instructions: How to Instill Ear Drops Print Language Print Language: [place] Discharge ED Provider: Phil Hodges [facility] General Stated complaint: L ear plugged Mode of Arrival: Ambulatory Source of Information: Patient Time Seen by Provider: 08/05/24 13:25 Description of Symptoms (Recalled from Triage Doc. by RN): LEFT EAR STOPPED UP, HARD TO HEAR HEENT Symptoms (Recalled from RN notes): Yes Resp Symptoms (Recalled from RN notes): No Skin Symptoms (Recalled from RN notes): No MS Symptoms (Recalled from RN notes): No Functional Status (Recalled from RN notes): WNL History of Present Illness Provider Complaint: He states that he has had decreased hearing in his left ear for the past 2 days. He states that he has had impacted cerumen in the past and that is what this feels like. Related Data Home Medications ?Medication ?Instructions ?Recorded ?Confirmed omeprazole 20 mg capsule,delayed 20 mg PO DIRECTED 09/22/21 08/05/24 release Previous Rx's ?Medication ?Instructions ?Recorded nzlfiups-nvswbzjcc-rapxcgawa 3.5 4 drp Ear-Left Q8H 7 days #10 mL 08/05/24 mg/mL-10,000 unit/mL-1 % ear solution Allergies Allergy/AdvReac Type Severity Reaction Status Date / Time No Known Allergies Allergy Verified 09/22/21 11:36 Worker's Comp Is this a Worker's Comp case?: No [facility] Disclaimer: The information contained in this section may have been updated after the patient was seen, as this information can be updated by other users. Medical History No significant past medical history Family History Other No significant family history Social History Smoking Status: Never smoker alcohol intake: never current occupational status: other Travel in the last 8 weeks: None household members: family housing: house ROS Obtained: Yes All systems reviewed & no additional complaints except as documented Constitutional Constitutional: Denies chills and Denies fever(s) Eyes Eyes: Denies eye discharge ENT Ears, Nose, Mouth, and Throat: Reports as per HPI, Denies dizziness, Denies otalgia and Denies sore throat Cardiovascular Cardiovascular: Denies chest pain Respiratory Respiratory: Denies shortness of breath, Denies chest congestion, Denies cough, Denies stridor and Denies wheezing Gastrointestinal Gastrointestingal: Denies nausea or vomiting Musculoskeletal Musculoskeletal: Reports system reviewed and no additional complaints, except as documented and Denies arthralgias Integumentary/Breasts Skin/Breast: Denies rash Neurologic Neurologic: Denies dizziness and Denies paresthesias Allergic/Immunologic Allergic/Immunologic: Denies wheezing Physical Exam General General appearance: alert and in no apparent distress Head Head exam: atraumatic, normocephalic and normal inspection Eye Eye exam: Present normal appearance, PERRL and EOMI ENT ENT exam: Present mucous membranes moist, TM's normal bilaterally and normal external ear exam Expanded ENT Exam TM/Canal exam: Left TM: cerumen impaction Neck Neck exam: Present normal inspection, full ROM and trachea midline; Absent meningismus or lymphadenopathy Chest Chest inspection: Present normal inspection and symmetric chest wall rise; Absent tenderness Respiratory Respiratory exam: Present normal lung sounds bilaterally; Absent respiratory distress Cardiovascular Cardiovascular exam: Present regular rate and normal rhythm; Absent JVD Abdominal Exam Abdominal exam: Present soft and normal bowel sounds; Absent distention, tenderness or guarding Extremities Exam Extremities exam: Present normal inspection, full ROM and normal capillary refill; Absent calf tenderness Back Exam Back exam: Present normal inspection; Absent tenderness Neurological Exam Neurological exam: Present alert and oriented X3 Psychiatric Psychiatric exam: Present normal affect and normal mood Skin Skin exam: Present warm, dry, intact and normal color Lymphatic Lymphatic Findings: no adenopathy Medical Decision Making Medical Records Medical records reviewed: No I reviewed the patient's medical records. Screening: Per USPSTF and CDC recommendations, given the prevalence of disease in our region, it is our hospital?s policy to screen for HIV and viral Hepatitis for all patients aged 18 and over and those with ongoing risk factors. Balaji Inquiry Pt receiving controlled substance: No Vital Signs: 08/05/24 13:30 Temperature 99.2 F Temperature Source Oral Pulse Rate [Left Brachial] 77 Respiratory Rate 18 Blood Pressure [Left Arm] 117/65 Blood Pressure Mean [Left Arm] 82 02 Sat by Pulse Oximetry 97 Procedures Risk/Benefits of Procedure(s) Were Explained: Yes Ear Wax Removal Left Ear: Results: Re-examined: cerumen removed completely TM Examination: TM(s) intact, normal appearance Ear Canal Exam: atraumatic Patient Tolerated Procedure: well and no complications Complications: no problems Technique: ear canal irrigated
[2024-08-05 14:02] VITALS: BP 117/65; PULSE 77; RESP 18; TEMP 37.3
== END 2024-08-05 14:05 | disposition home or self-care (01) ==
PROVIDERS: Emergency Provider Nurse Practitioner Family; PCP Nurse Practitioner Family
DX: H61.22 Impacted cerumen, left ear (principal)
CPT/HCPCS: 69210; 99214; G0382

== ENCOUNTER 2025-07-30 10:58 | Emergency (ER) | payer OTHER, SELFPAY ==
--- OUTSIDE RECORDS SUMMARY | 2002-11-14 | XMS_ITS | Encounter Summary ---
Author Organization [facility] Address [address] [place] [address] Care Team Providers Care Hosiery Pairer Name Role Phone Unavailable Primary Care Provider Unavailabl e Encounter Details Date Type Department Care Team (Late st Contact Info) Description 11/14/2002 Hospital Encounter [facility] Division of Diabetes and Endocrinology [address] [place] [phone] Social History Tobacco Use Types Packs/Day Years Used Date Smoking Tobacco: Never Assessed Sex and Gender Information Value Date Recorded Sex Assigned at Not on file Legal Sex Male 5:14 AM EST Gender Identity Not on file Sexual Orientation Not on file documented as of this encounter Plan of Treatment Not on file documented as of this encounter Visit Diagnoses Not on filedocumented in this encounter
--- OUTSIDE RECORDS SUMMARY | 2004-01-08 23:00 | XMS_ITS | Encounter Summary ---
Author Organization [facility] Address [address] [place] [address] Care Team Providers Care Glass Technician/Installer Name Role Phone Unavailable Primary Care Provider Unavailabl e Encounter Details Date Type Department Care Team (Late st Contact Info) Description 01/09/2004 Hospital Encounter [facility] Division of Neurology [address] [place] [phone] Social History Tobacco Use Types Packs/Day [...]
--- OUTSIDE RECORDS SUMMARY | 2004-05-05 23:00 | XMS_ITS | Encounter Summary ---
Author Organization [facility] Address [address] [place] [id number] Care Team Providers Care Process Control Supervisor Name Role Phone Unavailable Primary Care Provider Unavailabl e Encounter Details Date Type Department Care Team (Late st Contact Info) Description 05/06/2004 Hospital Encounter [facility] Department of Radiology [address] [place] [phone] Social History Tobacco Use Types Packs/Day Years [...]
--- OUTSIDE RECORDS SUMMARY | 2004-06-17 23:00 | XMS_ITS | Encounter Summary ---
Author Organization [facility] Address [address] [place] [id number] Care Team Providers Care Portfolio Assistant Name Role Phone Unavailable Primary Care Provider Unavailabl e Encounter Details Date Type Department Care Team (Late st Contact Info) Description 06/18/2004 Hospital Encounter [facility] Department of Radiology [address] [place] [phone] Social History Tobacco Use Types Packs/Day [...]
--- OUTSIDE RECORDS SUMMARY | 2024-12-22 16:30 | XMS_ITS ---
Author Organization [facility] Address [address] [facility] [address] [place] [address] Care Team Providers Care Yard Rigger Name Role Phone Analisa Rivera Primary Care Provider Migration, Provider Unavailable Unavailable REASON FOR VISIT Multum To Medispan Conversion Encounter Medications Medication SIG (Take, Route, Frequency, Duration) Notes Start Date End Date Status Omeprazole Magnesium 20 MG 1 tab(s) oral ly once a day; Duration: 90 days Active Multivitamin - 1 tab(s) orally once a day Active Cetirizine HCl 10 MG 1 tab(s) orally onc e a day; Duration: 90 days 01/27/2023 Active Encounters Encounter Location Date Provider Diagnosis [facility] [address] [facility] [address] [place] [address] 12/22/2024 Provider Migration Plan Of Treatment No Information Progress Notes * Kiley WOODOB: 0 (25 yo M)Acc No.[id number]:12/22/2024 Patient: Stephania Rahat ROTHMAN Provider: Jose cardenas Migration :2000 A ge:24 Y S ex:Male Date:12/22/2024 Address:[address], [id number] Pcp:Analisa Rivera Subjective: * Chief Complaints: * 1 . Multum To Medispan Conversion Encounter. * Medical History: * Medications: T aking Multivitamin - Tablet 1 tab(s) orally once a day , Taking Omeprazole Magnesium 20 MG Tablet Delayed Release 1 tab(s) orally once a day , Taking Cetirizine HCl 10 MG Tablet 1 tab(s) orally once a day Objective: * Vitals: Assessment: Plan: * Treatment: * * Electronic signature of Prov denysr Migration on 07/30/2025 at 11:10 AM EST Sign off status: Pending * Provider: Jose cardenas Migration Date: 0 12/22/2024 Generated for Tho bhat/Torres/Alec on: 1 09/29/2024 11:10 AM EST
[2025-07-30 10:59] VITALS: BP 121/87; PULSE 110; RESP 20; TEMP 37.4; O2SAT 100; BMI 20.5
[2025-07-30 11:07] LABS: Microscopic, Urine URINE MICROSCOPIC (MICROSCOPIC)
--- OUTSIDE RECORDS SUMMARY | 2025-07-30 11:10 | XMS_ITS | Clinical Summary ---
Author Organization [facility] Address [address] [place] [address] Care Team Providers Care Automatic Brine Mixer Operator Name Role Phone Unavailable Primary Care Provider Unavailabl e Source Comments [facility] is fully rolled out with thefollowing exceptions:General Clinical Research [facility] Social History Tobacco Use Types Packs/Day Years Used Date Smoking Tobacco: Never Assessed Sex and Gender Information Value Date Recorded Sex Assigned at Not on file Legal Sex Male 5:14 AM EST Gender Identity Not on file Sexual Orientation Not on file Plan of Treatment Health Maintenance Due Date Last Done Comments MMR IMMUNIZATION (1 of 1 - S tandard series) 01/06/2001 DTAP/Tdap/Td IMMUNIZATION (1 - Tdap) 01/06/2007 VARICELLA IMMUNIZATION (1 of 2 - 13+ 2-dose series) 01/06/2013 HPV IMMUNIZATION (1 - Male 3 -dose series) 01/06/2015 HEPATITIS B IMMUNIZATION (1 of 3 - 19+ 3-dose series) 01/06/2019 AMB SEASONAL FLU VACCINE (#1) 05/20/2025 COVID-19 Vaccine (1 - 2023-2 5 season) 2025 HIB IMMUNIZATION Aged Out No longer e ligible based on patient's age to complete this topic IPV IMMUNIZATION Aged Out No longer e ligible based on patient's age to complete this topic MCV4 IMMUNIZATION Aged Out No longer eligible based on patient's age to complete this topic MENINGOCOCCAL B VACCINE Aged Out No l onger eligible based on patient's age to complete this topic PNEUMOCOCCAL IMMUNIZATION Aged Out No longer eligible based on patient's age to complete this topic Respiratory Syncytial Virus (RSV) <20mo Aged Out No longer eligible b ased on patient's age to complete this topic
--- OUTSIDE RECORDS SUMMARY | 2025-07-30 11:10 | XMS_ITS | Patient Health Record ---
Author Organization [facility] Address [address] [facility] [address] [place] [address] Care Team Providers Care Shake Splitter Name Role Phone Analisa Rivera Primary Care Provider Migration, Provider Unavailable Unavailable Allergies No Known Allergies Reason For Referral No Information Medications Medication SIG (Take, Route, Frequency, Duration) Notes Start Date End Date Status Omeprazole Magnesium 20 MG 1 tab(s) oral ly once a day; Duration: 90 days Active Multivitamin - 1 tab(s) orally once a day Active Cetirizine HCl 10 MG 1 tab(s) orally onc e a day; Duration: 90 days 01/27/2023 Active Immunizations Vaccine Route Administration Date Status Comme nts Flublok IM Intramuscular 06/12/2021 Administered Flublok IM Intramuscular 07/01/2022 Administered Flublok IM Intramuscular 07/19/2024 Administered FLUZONE 6MO - OLDER IM Intramuscular 06/20/2020 Administer ed FLUZONE 6MO - OLDER IM Intramuscular 08/09/2023 Administer ed Problems Problem Type SNOMED Code ICD Code Onset Dates Problem Status W/U Status Risk Notes Problem Gastroesophageal reflux disease (870398058) GERD without esophagitis (K21.9) Active confirmed Problem Allergic rhinitis (00218432) Chronic allergic rhinitis (J30.9) Active confirmed Problem Chronic sinusitis (48187203) Purulent postnasal drainage (J32.9) Active confirmed Encounters Encounter Location Date Provider Diagnosis [facility] [address] [place] [address] 12/22/2024 Provider Migration Plan Of Treatment Pending Test Test Name Order Date NUCLEAR MED : HIDA scan 01/30/2020 C-DRUG SCREEN 12 PANEL 06/20/2020 Insurance Providers Payer Name Payer Address Payer Phone Subscriber Number Group Number Insured Name Patient Relationship to Insured Coverage Start Date Coverage End Date [facility] [address] [place] [address] [id number] Rahat Valdez Self - patient is the insured Medications Administered Medication Instructions Date of Administration Dosage Notes Dexamethasone 4mg Injection 10/02/2021 4 mg Dexamethasone 4mg Injection 12/10/2023 4 mg Medical (General) History Medical History History ICD Code Chronic ear issues and seasonal allergie s Surgical History Surgery Date(Month/Year) T & A 2008 bilateral ear tubes 2004 EGD Hospitalization History Reason Date(Month/Year) Hospitalized for a stomach virus in [facility]
--- OUTSIDE RECORDS SUMMARY | 2025-07-30 11:10 | XMS_ITS | Data Portability ---
Author Organization [facility] Address [address] [place] [address] Assessment No assessment recorded. Plan of Treatment Reminders Order Date Submit Date Provider Last Modified By Organization Details Last Modified Time Details Appointments None recorded. Lab rapid strep group A, throat 2022 023 [facility], [address] [place] [address], [id number], 3 10:31:50 rapid SARS CoV + SARS CoV 2 Ag, QL IA, respiratory specimen 2022 023 [facility], [address] [place] [address], [id number], 3 10:31:50 rapid strep group A, throat 2022 023 [facility], [address] [place] [address], [id number], 3 16:33:05 rapid flu (A+B) 2022 023 [facility], [address] [place] [address], [address], 3 16:33:05 rapid SARS CoV + SARS CoV 2 Ag, QL IA, respiratory specimen 2022 023 [facility], [address] [place] [address], [id number], 16:33:06 rapid SARS CoV + SARS CoV 2 Ag, QL IA, respiratory specimen 2021 [facility], [address] [place] [address], [id number], 17:55:10 rapid flu (A+B) 2021 [facility], [address] [place] [address], [id number], 17:55:26 rapid strep group A, throat 2021 [facility], [address] [place] [address], [id number], 17:56:22 Referral None recorded. Procedures None recorded. Surgeries None recorded. Imaging None recorded. Medication Orders Zithromax Z-Néstor 250 mg tablet [address] [facility], [address] [place] [address], [id number], 10:33:00 ondansetron HCl (PF) 4 mg/2 mL injection solution 2022 023 niraj Not available 09:44:25 ondansetron 4 mg disintegrat ing tablet 2022 023 [facility], [address] [place] [address], [id number], 09:52:24 Tamiflu 75 mg capsule [address] [facility], [address] [place] [address], [id number], 3 09:48:30 Zithromax Z-Néstor 250 mg tablet 2021 023 BRYAN Ruiz [facility], [address] [address] [place] Ontiver[place], [id number], 15:54:41 Patient TargetsNo targets recorded. Patient InstructionsNo instructions recorded. Reason for Referral None Reported. Results Created Date Observation Date Name Description Value Unit Range Abnormal Flag Note LastModifiedBy Organization Detail LastModifiedTime 09/14/20 22 09/14/2022 rapid strep group A, throa t Strep positi ve Not Available [address], [address], 09/14/2022 15:15:56 09/14/20 22 09/14/2022 rapid strep group A, throa t Culture No Not Available [address], [address], 09/14/2022 15:15:56 09/14/20 22 09/14/2022 rapid flu (A+B) Flu negati ve Not Available [address], [address], 09/14/2022 15:15:42 09/14/20 22 09/14/2022 rapid flu (A+B) Type Both A & B Not Available [address], [address], 09/14/2022 15:15:42 09/14/20 22 09/14/2022 rapid SARS CoV + SARS CoV 2 Ag, QL IA, respi rator y speci men SARS CoV antigen Negati ve Not Available [address], [address], 09/14/2022 15:15:35 06/03/20 23 06/03/2023 rapid SARS CoV + SARS CoV 2 Ag, QL IA, respi rator y speci men SARS CoV antigen Invali d Not Available [address], [address], 06/03/2023 15:50:04 06/03/20 23 06/03/2023 rapid flu (A+B) Flu positi ve Not Available [address], [address], 06/03/2023 15:49:54 06/03/20 23 06/03/2023 rapid flu (A+B) Type A Not Available [address], [address], 06/03/2023 15:49:54 06/03/2006/03/2023 rapid strep group A, throa t Strep negati ve Not Available [address], [address], 06/03/2023 15:49:21 06/03/2006/03/2023 rapid strep group A, throa t Culture No Not Available [address], [address], 06/03/2023 15:49:21 06/27/20 23 06/27/2023 rapid strep group A, throa t Strep negati ve Not Available [address], [address], 06/27/2023 10:27:36 06/27/20 23 06/27/2023 rapid strep group A, throa t Culture No Not Available [address], [address], 06/27/2023 10:27:36 06/27/2006/27/2023 rapid SARS CoV + SARS CoV 2 Ag, QL IA, respi rator y speci men SARS CoV antigen Negati ve Not Available [address], [place], [address], 06/27/2023 10:27:43 Result Notes None recorded. Problems Name Problem SNOMED Code Status Onset Date Resolution Date Notes Provider Name and Address Organization Details Recorded Time Gastroesophage al reflux disease 462487601 Active 2022 Diane Blackmangera null, [place] - [facility] 15:47:23 Problem Notes None recorded. Procedures Surgical History Date Name Laterality Status Provider Name and Address Organization Details Recorded Time Tonsillectomy completed Diane Kelly [place] - [facility] 06/03/2023 15:48:38 Imaging Results None recorded. Procedure Notes None recorded. Medical Equipment None Reported. Allergies No known drug allergies Medications Name Sig Start Date Stop Date Status Note LastModified by Organization Details LastModified Time cetirizine 10 mg tablet active Not Available Not Available Not Available azithromyci n 250 mg tablet TAKE 2 TABLETS (500 MG) BY ORAL ROUTE ONCE DAILY FOR 1 DAY THEN 1 TABLET (250 MG) BY ORAL ROUTE ONCE DAILY FOR 4 DAYS active Not Available Not Available No t Available promethazin e 25 mg rectal suppository 06/27 completed Not Available Not Available Not Available Tamiflu 75 mg capsule Take 1 capsule twice a day by oral route for 5 days. 06/27 completed Not Available Not Available Not Available omeprazole 20 mg capsule,del ayed release Take 1 capsule every day by oral route. active Not Available Not Available No t Available scopolamine 1 mg over 3 days transdermal patch APPLY 1 PATCH EVERY 72 HOURS NEEDED FOR NAUSEA AND VOMITING 06/27 completed Not Available Not Available Not Available ondansetron 4 mg disintegrat ing tablet Place 1 tablet every 8 hours by transling ual route as needed for 3 days. 06/27 completed Not Available Not Available Not Available cetirizine 10 mg chewable tablet Chew 1 tablet every day by oral route. active Not Available Not Available No t Available ondansetron HCl (PF) 4 mg/2 mL injection solution Take 4 mg by injection route. 06/27 completed Not Available Not Available Not Available Vitals Date Recorded Body height Body mass index (BMI) Body weight Body temperature Respiratory rate Oxygen saturation Oxygen saturation in Arterial blood by Pulse oximetry Heart rate Systolic And Diastolic Provider Name and Address Organization Details Last Updated DateTime 3 165.1 cm 18.5 kg/m2 40214.7 5 g 99.6 [degF] 18 /min 97 % 97 % 110 /min 104/64 mm[Hg] Diane Stears [place] - [facility] 3 15:46:22 Date Recorded Body height Body mass index (BMI) Body weight Body temperature Heart rate Oxygen saturation Oxygen saturation in Arterial blood by Pulse oximetry Respiratory rate Pain severity - 0-10 verbal numeric rating [Score] - Reported Systolic And Diastolic Provider Name and Address Organization Details Last Updated DateTime 3 165.1 cm 18.6 kg/m2 76928.3 5 g 99.1 [degF] 95 /min 98 % 98 % 18 /min 0 112/76 mm[Hg] Jacki Nash [place] - [facility] 3 09:51:48 Date Recorded Body height Body mass index (BMI) Body weight Body temperature Heart rate Oxygen saturation Oxygen saturation in Arterial blood by Pulse oximetry Respiratory rate Pain severity - 0-10 verbal numeric rating [Score] - Reported Systolic And Diastolic Provider Name and Address Organization Details Last Updated DateTime 2 165.1 cm 18.5 kg/m2 10465.4 5 g 99 [degF] 87 /min 98 % 98 % 18 /min 0 105/68 mm[Hg] Jacki Nash [place] - [facility] 2 15:12:43 Social History Question Answer Notes LastModified by Organizat ion Details LastModified Time Tobacco Smoking Status Never Smoker Jacki montenegro [place] - [facility] 09/14/2022 15:14:17 Do You Have An Advance Directive? No Information not available 06/03/2023 Are You Blind Or Do You Have Difficulty Seeing? No Information not available 06/03/2023 What Is Your Level Of Caffeine Consumption? Moderate Information not available 09/14/2022 Are You Deaf Or Do You Have Serious Difficulty Hearing? No Information not available 06/03/2023 What Type Of Diet Are You Following? REGULAR Information not available 06/03/2023 What Is The Highest Grade Or Level Of School You Have Completed Or The Highest Degree You Have Received? [id number] Information not available 06/03/2023 Have There Been Any Changes To Your Family Or Social Situation? No Information no t available 06/03/2023 What Is The Fluoride Status Of Your Home? Unknown Information not available 06/03/2023 Do You Have A Medical Power Of Coal Tower Operator? No Information not available 06/03/2023 What Was The Date Of Your Most Recent Tobacco Screening? 06/03/2023 Information not available 06/03/2023 What Is Your Relationship Status? Single Information not available 06/03/2023 Do You Have Smoke And Carbon Monoxide Detectors In Your Home? Yes Information not available 06/03/2023 Has Tobacco Cessation Counseling Been Provided? No Information not available 09/14/2022 Do You Have Difficulty Walking Or Climbing Stairs? No Information not available 06/03/2023 Sex: Male Functional Status Question Answer Note LastModified by Organizat ion Details LastModified Time Do you use any illicit or recreational drugs? No Information not available 09/14/2022 Do you or have you ever used any other forms of tobacco or nicotine? No Information not available 09/14/2022 What is your level of alcohol consumption? None Information not available 09/14/2022 Are you currently employed? Yes Information not available 06/03/2023 Do you have transportation difficulties? No Information not available 06/03/2023 Are you able to walk independently without assistance or assistive devices? YESWOREST Information not available 06/03/2023 Do you have difficulty doing errands alone? No Information not available 06/03/2023 Are you able to care for yourself independently? Yes Information not available 06/03/2023 What is your occupation? [employer] Information not available 06/03/2023 Do you have difficulty dressing, bathing, grooming, or toileting? No Information not available 06/03/2023 What is your exercise level? None Information not available 06/03/2023 Mental Status Question Answer Note LastModified by Organizat ion Details LastModified Time Do you feel stressed (tense, restless, nervous, or anxious, or unable to sleep at night)? [id number] Information not available 06/03/2023 Do you have difficulty concentrating, remembering or making decisions? No Information no t available 06/03/2023 Family History Relationship Description Onset Age of this Age Resolved Age Notes LastModified by Organization Details LastModified Time Father No current problems or disability [email or web address] Not available 06/03 15:47:28 Mother No current problems or disability [email or web address] Not available 06/03 15:47:28 Medical History Condition Response Pancreatitis N Coronary Artery Disease N Other N Gout N Atrial Fibrillation N congenital heart disease N Blood Diseases N Kidney Stones N Hyperthyroidism N Rheumatoid arthritis N Blood Transfusion N Erectile Dysfunction N amputation N Colonoscopy N Skin Lesions N COPD N Depression N Pneumonia N Incontinence N Murmur N Edema N Alzheimer's Disease N Migraine Headaches N Tobacco Abuse N Anxiety Disorder N Muscle, Joint, or Bone Problems N Hemorrhoids N Obesity N Vision or Eye Problems N Restless Leg Syndrome N Arthritis N Infertility N Polyps N Carpal Tunnel N Mental Disorder N Acid Reflux (GERD) N Cancer N Stroke N Varicosities N Tendonitis N Crohn's Disease N Hypercholesterolemia N Skin Cancer N Fibromyalgia N Headaches N Anal Fissure N Irritable Bowel Syndrome N Kidney Disease N Heart Problems N Ear or Hearing Problems N Hospitalizations N Gallstones N Kidney or Bladder Problems N Goiter N Acne N Skin Problems N Eating Disorder N Maria's Esophagus N Hypertriglyceridemia N MRSA exposure N Constipation N Embolism N Vitamin B12 Deficiency N Deviated Septum N Tuberculosis N AIDS/HIV N Myocardial Infarction N Asthma N Mitral Valve Disorders N Vertigo N Hepatitis N Thyroid Cancer N Neuropathy N Pulmonary Embolism N History of DVT N Herniated Disc N Chronic Ear Infections N Chicken Pox N Autism Spectrum Disorder (ASD) N Von Willebrands Disease N Thrombophilias N Breast Cancer N Hernia N Plantar Fasciitis N Hospital Admission Other Than N Lung Disease N Hypothyroidism N Defects or Inherited Disease N Developmental or Behavioral Disorders N Breast Problem N Difficulty Swallowing N Ovarian Cyst N Anesthesia Complications N Testosterone Deficiency N Meniere's disease N Head Injury/Concussion N Interstitial Cystitis N Congenital Anomalies N Hypoglycemia N Blood clot N Vitamin D Deficiency N Cellulitis N Endometriosis N Fracture N Bladder or Kidney Problems N Colorectal Cancer N Liver Disease N Panic Disorder N Schizophrenia N Concussion N Spina Bifida N Allergies/Hayfever N Osteoarthritis N Parkinson's Disease N Disc Protrusion N STI N Esophagitis N Angina N Thyroid Problems N GI Problems N ADD/ADHD N Anemia N Multiple Sclerosis N Abnormal PAP N Lumbago N Mental Illness N Psychiatric Illness N Diabetes N Ovarian Cancer N Bedwetting N Degenerative Disc Disease N Seizures/Epilepsy N Congestive Heart Failure (CHF) N Hyperlipidemia N Syncope N Insomnia N Eczema N Abuse/Domestic Violence N Attention Deficient Disorder N Diverticulitis N Dementia N Ulcerative colitis N Cerebrovascular Disease N Depression N Guillain-Charlemont N Sleep Apnea N Aneurysm N Bronchitis N Heart Disease N Suicidal Ideation N Pre-Eclampsia N Hypertension N Osteoporosis N Immunizations Vaccine Type Date Status Note Provider Nam e and Address Organization Details Recorded Time COVID-19 vaccine, vector-nr, rS-Ad26, PF, 0.5 mL 1 completed Jacki Nash null, [place] - [facility] 09/14/2022 15:13:07 Hep A, ped/adol, 2 dose 7 completed Jacki Nash null, [place] - [facility] 09/14/2022 15:13:07 Hep B, adolescent or pediatric 0 completed Jacki [place], [place] - [facility] 09/14/2022 15:13:07 Hib (PRP-OMP) 0 completed Jacki [place] - [facility] 09/14/2022 15:13:07 Influenza, split virus, quadrivalent, preservative 5 completed Jacki [place] - [facility] 09/14/2022 15:13:07 meningococcal MCV4, unspecified formulation 2 completed Jacki [place] - [facility] 09/14/2022 15:13:07 Influenza, recombinant, quadrivalent, PF 1 completed Jacki montenegro, [place] - [facility] 09/14/2022 15:13:07 Influenza, split virus, quadrivalent, PF 0 completed Jacki Nash null, [place] - [facility] 09/14/2022 15:13:07 varicella 2 completed Jacki Saad null, [place] - [facility] 09/14/2022 15:13:07 Influenza, recombinant, quadrivalent, PF 2 completed Jacki Sa[place] null[place] - [facility] 09/14/2022 15:13:07 DTaP, unspecified formulation 0 completed Jacki Sa[place] null[place] - [facility] 09/14/2022 15:13:07 Hep A, ped/adol, 2 dose 8 completed Jacki Sa[place] null, [place] - [facility] 09/14/2022 15:13:07 MMR 1 completed Jacki [place] - [facility] 09/14/2022 15:13:07 DTaP, unspecified formulation 0 completed Jacki [place] - [facility] 09/14/2022 15:13:07 Hib-Hep B 1 completed Jack[place] - [facility] 09/14/2022 15:13:07 IPV 4 completed Jacki [place] null[place] - [facility] 09/14/2022 15:13:07 COVID-19, mRNA, LNP-S, PF, 100 mcg/0.5mL dose or 50 mcg/0.25mL dose 2 completed Jacki Saad null, [place] - [facility] 09/14/2022 15:13:07 Influenza, split virus, quadrivalent, PF 6 completed Jacki [place] [facility] 09/14/2022 15:13:07 Influenza, split virus, quadrivalent, preservative 4 completed [place] [facility] 09/14/2022 15:13:07 DTaP, unspecified formulation 0 completed Jack[place] [facility] 09/14/2022 15:13:07 Hib-Hep B 0 completed Jack[place] [facility] 09/14/2022 15:13:07 IPV 0 completed Jack[place] [facility] 09/14/2022 15:13:07 Influenza, split virus, quadrivalent, preservative 6 completed Jacki [place] [facility] 09/14/2022 15:13:07 Influenza, split virus, quadrivalent, preservative 5 completed Jack[place] [facility] 09/14/2022 15:13:07 Tdap 2 completed Jack[place] [facility] 09/14/2022 15:13:07 DTaP, unspecified formulation 1 completed Jack[place] [facility] 09/14/2022 15:13:07 IPV 1 completed Jack[place] [facility] 09/14/2022 15:13:07 DTaP, unspecified formulation 4 completed Jack[place] [facility] 09/14/2022 15:13:07 MMR 4 completed Jacki [place] - [facility] 09/14/2022 15:13:07 varicella 2 completed Jack[place] [facility] 09/14/2022 15:13:07 meningococcal MCV4P 8 completed Jacki [place] - [facility] 09/14/2022 15:13:07 Influenza, split virus, quadrivalent, PF 5 completed Jack[place] - [facility] 09/14/2022 15:13:07 IPV 0 completed Jacki [place] null[place] - [facility] 09/14/2022 15:13:07 Past Encounters Encounter ID Performer Location Encounter Start Date Encounter Closed Date Diagnosis/Indication Diagnosis SNOMED-CT Code Diagnosis ICD10 Code Diagnosis IMO Codes Diagnosis Note [id number] Amy Jones APRN [address] [address] 09/14/2022 14:49:37 09/14/2022 15:39:12 Streptococcal sore throat 14327018 J02.0 contact precaution s discussed. med discussed [id number] Amy Jones APRN [address] [address] 06/03/2023 15:37:04 06/03/2023 16:39:16 Influenza caused by Influenza A virus 554542134 J09.X2 no sign of a bacterial infection. likely viral. viruses can take 7-14 days to run their course.shagufta al saline and bulb syringe to remove nasal drainage to help with congestion .monitor temp. Tylenol or Motrin as needed for pain or fever.enco urage fluids, water, Gatorade, power aide, Pedialyte if /tod dler/child warm salt water gargleswar m fluidssore throat lozengessl eep elevatedhu midifier/v aporizerfo llow up immediatel y for new or worsening symptoms or no noticeable improvemen t over the next 48-72 hours Nausea and vomiting 1693 2000 R11.2 increase fluids [id number] Amy Jones APRN [address] [address] 06/27/2023 09:34:56 06/27/2023 10:32:32 Streptococcal sore throat 32458992 J02.0 contact precaution s discussed. med discussed Health Concerns Section Related Observation LastModified by Organization Detai ls LastModified Time None Recorded Concern Status LastModified by Organization Details LastModified Time None Recorded Advance Directives Directive N: Payers Insurance Date Sequence Insurance Name Policy Number Policy Dunaway Covered Member ID Dunaway Member ID Guarantor Name 06/27/2023 1 [employer] [id number] [facility] [facility] Notes Date Note Type Note Provider Name and Address Organization Details Recorded Time 09/14/2022 text/html 22 yr old male presents with cough, sore throat and fever since Tuesday. Home test for covid was negative on Tuesday. Amy Jones APRN [address], [place], [address], [place] - [facility] 09/14/2022 15:40:30 06/03/2023 text/html Rahat is a 23 year old male who presents to the office today with concernsfever, nausea, vomiting, leg pain, headache, cough, sore throat and nasal drainage Amy Jones APRN [address], [place], [address], [facility] - [facility] 06/21/2023 08:53:31 06/27/2023 text/html 23 yr old male presents with continued cough and low grade temp from having the flu recently (3 weeks ago). Amy Jones, [employer] TECHNICIAN [address], [place], [address], [facility] - [facility] 06/27/2023 10:32:29
[2025-07-30 11:20] LABS: Color,Urine YELLOW (Yellow); Glucose,Urine (UA) Negative (Negative); Ketones,Urine 2+ (Negative); Leukocyte Esterase,Urine Negative (Negative); PH,Urine 6.0 (5.0-8.5); Protein,Urine 2+ (Negative); Specific Gravity, Urine >= 1.030 (1.005-1.030); Urobilinogen,Urine 1.0 EU/dl (0.2)
[2025-07-30 11:23] LABS: Bilirubin,Urine 2+ (Negative)
--- NOTE | 2025-07-30 11:24 | ED_ITS ---
<Statement entered by Jg Louis MD - 07/30/25 14:00> Jg Louis MD: I was consulted by the TEJA, and we discussed the complexity of the problems being addressed. I approved the treatment and management plan for this patient's care in the emergency department, thus performing a substantive portion of the medical decision making. Discharge Plan Disposition Patient Disposition: Home, Self-Care Prescriptions Prescriptions: New promethazine 25 mg tablet 25 mg PO QID PRN (Reason: nausea and vomiting) 5 Days Qty: 15 0RF No Action omeprazole 20 mg capsule,delayed release(DR/EC) 20 mg PO DIRECTED exhulzdl-[id number]-GI 3.5-10,000-1 mg/mL-unit/mL-% solution 4 drp Ear-Left Q8H 7 Days Qty: 10 0RF Referrals Follow up/Referrals: Orville Mary II, MD [Staff Physician, Gastroenterology] - See instructions Analisa Rivera APRN [Primary Care Provider, Medical] - See instructions Activity Restrictions/Add. Instructions Additional Instructions/Restrictions: Today you were evaluated in the emergency department for nausea and vomiting. You were given promethazine IV. Please call above work checker to make a follow-up appointment. Follow-up with your PCP. Return to the ED for any worsening of condition. Clinical Impressions Clinical Impression: Vomiting, Nausea Stand Alone Forms Stand Alone Forms: Work/School Release Instructions Patient Instructions: DI for Nausea in Adults Print Language Print Language: Upper Sorbian Discharge ED Provider: Jg Louis General Adult HPI General Chief complaint: Nausea/Vomiting/Diarrhea Stated complaint: nausea, vomiting Time Seen by Provider: 07/30/25 10:59 History of Present Illness HPI narrative: patient is a 25-year-old male PMHx gastroenteritis, history of nausea and vomiting, anxiety who presents to the ED with his father for complaints of nausea and vomiting. Patient states he started with nausea on Tuesday which has progressed to vomiting, unable to keep food or fluids down. Related Data Home Medications ?Medication ?Instructions ?Recorded ?Confirmed omeprazole 20 mg capsule,delayed 20 mg PO DIRECTED 09/22/21 08/05/24 release Previous Rx's ?Medication ?Instructions ?Recorded ufnchswk-zgxkvtuwr-tveypsksd 3.5 4 drp Ear-Left Q8H 7 days #10 mL 11/17/24 mg/mL-10,000 unit/mL-1 % ear solution promethazine 25 mg tablet 25 mg PO QID PRN nausea and 07/30/25 vomiting 5 days #15 tabs Allergies Allergy/AdvReac Type Severity Reaction Status Date / Time No Known Allergies Allergy Verified 09/22/21 11:36 [facility] Disclaimer: The information contained in this section may have been updated after the patient was seen, as this information can be updated by other users. Medical History No significant past medical history Family History Other No significant family history Social History Smoking Status: Never smoker alcohol intake: never current occupational status: other Travel in the last 8 weeks?: None household members: family housing: house Have you lived/traveled outside [place] in past 30 days?: No Contact w/someone who lives/traveled outside [place] past 30 days?: No Exposure to someone with infectious disease in past 14 days?: No Do you have a fever (greater than 100.4 F or 38 C)?: No Have you tested positive for COVID-19?: No Exposed to someone with COVID-19 in past 14 days?: No Do you have a sore throat?: No Do you have a cough?: No Do you have any weakness?: No Do you have any diarrhea?: No Are you experiencing any unusual bleeding?: No Do you have any muscle aches/pain?: No Do you have any abdominal pain?: No Are you experiencing loss of taste or smell?: No Other Medical History Have you received the Flu Vaccine for this season: Yes Have you received the Pneumonia Vaccine: No ROS Obtained: Yes Systems reviewed as appropriate & no additional complaints except as documented Physical Exam General General appearance: alert Comment: Dry mucous membranes Eye Eye exam: Present PERRL Neck Neck exam: Present full ROM Respiratory Respiratory exam: Present normal lung sounds bilaterally Cardiovascular Cardiovascular exam: Present tachycardia Abdominal Exam Abdominal exam: Present soft; Absent distention or tenderness Back Exam Back exam: Present full ROM Neurological Exam Neurological exam: Present alert and oriented X3; Absent motor sensory deficit Skin Skin exam: Present dry Medical Decision Making Medical Records Screening: Per USPSTF and CDC recommendations, given the prevalence of disease in our region, it is our hospital?s policy to screen for HIV and viral Hepatitis for all patients aged 18 and over and those with ongoing risk factors. Balaji Inquiry Pt receiving controlled substance: No Vital Signs: 07/30/25 10:59 07/30/25 11:30 07/30/25 12:00 Temperature 99.3 F Temperature Source Temporal Artery Scan Pulse Rate 98 H 97 H Pulse Rate [Left Radial] 110 H Respiratory Rate 20 14 16 Blood Pressure 116/79 108/68 L Blood Pressure [Right Arm] 121/87 Blood Pressure Mean [Right Arm] 98 02 Sat by Pulse Oximetry 100 96 96 Oxygen Delivery Method Room Air 07/30/25 12:30 Temperature Temperature Source Pulse Rate 85 Pulse Rate [Left Radial] Respiratory Rate 18 Blood Pressure 106/71 L Blood Pressure [Right Arm] Blood Pressure Mean [Right Arm] 02 Sat by Pulse Oximetry 100 Oxygen Delivery Method Lab Data Lab Results 07/30/25 11:01: Urine Color Yellow, Urine Appearance Clear, Urine pH 6.0, Ur Specific Delta >= 1.030, Urine Protein 2+ A, Urine Glucose (UA) Negative, Urine Ketones 2+, Urine Blood Negative, Urine Nitrate Negative, Urine Bilirubin 2+ A, Urine Urobilinogen 1.0, Ur Leukocyte Esterase Negative, Urine RBC 3-5, Urine WBC None, Ur Squamous Epith Cells None, Urine Bacteria Trace 07/30/25 11:12: WBC 13.9 H, RBC 5.47, Hgb 16.4, Hct 45.3, MCV 82.8, MCH 30.0, M CHC 36.2 H, RDW 12.0, Plt Count 279, MPV 11.5 H, Neut % (Auto) 86.2 H, Lymph % (Auto) 8.4 L, [place] % (Auto) 4.9, Eos % (Auto) 0.0 L, Baso % (Auto) 0.1, Neut # (Auto) 12.0 H, Lymph # (Auto) 1.2, [place] # (Auto) 0.7, Eos # (Auto) 0.0, Baso # (Auto) 0.0, Sodium 139, Potassium 4.1, Chloride 101, Carbon Dioxide 22, Anion Gap 20.1 H, BUN 21 H, Creatinine 0.90, Estimated Creat Clear 105, Estimated GFR 103, Est GFR ( Amer) 124, Glucose 115 H, Calcium 10.2, Total Bilirubin 1.0, AST 39, ALT 47, Alkaline Phosphatase 73, Total Protein 8.4 H, Albumin 5.2 H , Globulin 3.2, Albumin/Globulin Ratio 1.6 07/30/25 11:12 07/30/25 11:12 Orders (Tests/Meds): ED MEDICATIONS Discontinued Medications Generic Name Dose Route Start Last Admin Trade Name Ash PRN Reason Stop Dose Admin Sodium Chloride 1,000 mls @ 999 mls/hr 07/30/25 11:20 07/30/25 12:44 Sod Chlor 0.9% 1000ml Bag IV 07/30/25 12:20 Infused .Q1H1M ONE Infusion Promethazine HCl 25 mg 07/30/25 11:20 07/30/25 11:40 Promethazine Hcl 25mg/Ml 1ml Vial IV 07/30/25 11:21 25 mg ONCE ONE Administration Sodium Chloride 25 ml 07/30/25 11:20 07/30/25 11:40 Sodium Chloride 0.9% 25ml Bag IV 07/30/25 11:21 25 ml ONCE ONE Administration ORDERS Category Date Time Status CBC w/Auto Diff [Complete Blood Count Auto Diff] Stat Lab 07/30/25 11:12 Completed CMP [Comprehensive Metabolic Panel] Stat Lab 07/30/25 11:12 Completed UA [Urinalysis and Microscopic] Stat Lab 07/30/25 11:01 Completed Medical Decision Narrative: In summary, patient is a 25-year-old male PMHx gastroenteritis, history of nausea and vomiting, anxiety who presents to the ED with his father for complaints of nausea and vomiting. Patient states he started with nausea on Tuesday which has progressed to vomiting, unable to keep food or fluids down. Patient tried Zofran this morning without any relief. He denies any abdominal pain. Patient has not been evaluated by GI. He denies fever, chills, body aches, headache, neck pain, chest pain, shortness of breath, abdominal pain, diarrhea. Differential diagnosis include gastroparesis, mesenteric ischemia, dehydration, infectious process, electrolyte abnormality, among others. Upon initial evaluation patient is alert, oriented and cooperative. He is tachycardic, heart rate 102. Abdomen is soft and nontender. Lips appear dry, mucous membranes dry. I discussed with patient and father that we will proceed with lab work, I do not feel inclined to perform a CT scan of the abdomen pelvis at this time as there is no abdominal tenderness or pain reported. Will rehydrate with IV fluids and IV promethazine. They are agreeable to plan of care at this time. Hematologic labs reviewed. CBC remarkable for mild leukocytosis, WBC 13.9, most likely reactive, stable H&H. CMP remarkable for anion gap 20.1, glucose 115. Urinalysis noted to have a specific gravity >=1.030, 2+ protein, 2+ bilirubin. Upon reassessment, patient's condition has improved and he is no longer tachycardic, HR 93. Given this, I feel patient is safe to be discharged home at this time. Discussed that I will place GI specialist on discharge papers and they can call to make a follow-up appointment. Advised him to follow-up with his PCP. We discussed taking medication as directed. Return to the ED for any worsening of condition. Patient remained hemodynamically stable and ambulatory from the ED without difficulty. Critical Care Critical Care Time Critical Care Time: No
[2025-07-30 11:30] VITALS: BP 116/79; PULSE 98; RESP 14; O2SAT 96
[2025-07-30 11:30] LABS: Hematocrit 45.3 % (42.0-52.0); Hemoglobin 16.4 g/dL (14.1-18.0); Immature Granulocytes % 0.4 %; Mean Corpuscular HGB Conc 36.2 g/dL (31.8-35.4); Mean Corpuscular Hemoglobin 30.0 pg (27.0-31.2); Mean Corpuscular Volume 82.8 fl (80-94); Nucleated Red Blood Cells % 0 %; Platelet Count 279 K/mm3 (142-424); Red Blood Count 5.47 M/mm3 (4.60-6.20); Red Cell Distribution Width-SD 36.6 fL; White Blood Count 13.9 K/mm3 (4.8-10.8)
[2025-07-30 11:31] LABS: Alanine Aminotransferase 47 U/L (12-78); Albumin Level 5.2 g/dl (3.5-5.0); Albumin/Globulin Ratio 1.6 (1.1-1.8); Alkaline Phosphatase 73 U/L (38-126); Anion Gap 20.1 mEq/L (5-15); Aspartate Amino Transferase 39 U/L (17-59); Bilirubin,Total 1.0 mg/dl (0.2-1.3); Blood Urea Nitrogen 21 mg/dl (9-20); Calcium 10.2 mg/dl (8.4-10.2); Carbon Dioxide 22 mmol/L (22.0-30.0); Chloride 101 mmol/L (98-107); Creatinine Clearance Estimated 105 mL/min (50-200); Creatinine,Serum 0.90 mg/dl (0.66-1.25); Estimated Glomerular Filt Rate 103 ml/min (>60); GFR (African American) 124 ML/MIN (>60); Globulin 3.2 g/dL (1.3-3.2); Glucose 115 mg/dl (74-100); Potassium 4.1 mmoL/L (3.5-5.1); Sodium 139 mmol/L (136-145); Total Protein,Serum 8.4 g/dl (6.3-8.2)
[2025-07-30 11:38] LABS: Bacteria,Urine Trace /lpf
[2025-07-30] MEDS: 0.9 % SODIUM CHLORIDE 1000ML 1,000 ML 999 ML IV (11:40)
[2025-07-30] MEDS: SODIUM CHLORIDE 0.9% 25ML BAG 25 ML IV (11:40)
[2025-07-30] MEDS: PROMETHAZINE HCL 25MG/ML 1ML VIAL 25 MG IV (11:40)
[2025-07-30 12:00] VITALS: BP 108/68; PULSE 97; RESP 16; O2SAT 96
--- NOTE | 2025-07-30 12:20 | PC.NURSE ---
I called and spoke to a pharmacist at [facility] to change the phenergran from tablets to suppositories.
[2025-07-30 12:30] VITALS: BP 106/71; PULSE 85; RESP 18; O2SAT 100
[2025-07-30 12:52] VITALS: BP 106/71; PULSE 94; RESP 20; TEMP 36.9; O2SAT 100
== END 2025-07-30 12:53 | disposition home or self-care (01) ==
PROVIDERS: Nurse Practitioner; Emergency Provider Emergency Medicine; PCP Nurse Practitioner Family
DX: R11.2 Nausea with vomiting, unspecified (principal); E86.0 Dehydration
CPT/HCPCS: 80053; 81001; 85025; 96361; 96365; 99284; 99285; J2550; J7030